=== PATIENT | female | born 1950 ===

== ENCOUNTER 2023-04-19 08:47 | Outpatient (REF) | payer MEDICARE, OTHER, SELFPAY | END 2023-04-19 08:48 | disposition home or self-care (01) | LOC: HO.HOSX 08:47 | PROVIDERS: Visit Provider Orthopaedic Surgery | DX: Z13.89 Encounter for screening for other disorder (principal) ==

== ENCOUNTER 2023-05-01 10:59 | Outpatient (REF) | payer MEDICARE, OTHER, SELFPAY | END 2023-05-01 11:00 | disposition home or self-care (01) | LOC: HO.HOSX 10:59 | PROVIDERS: Visit Provider Orthopaedic Surgery | DX: Z13.89 Encounter for screening for other disorder (principal) ==

== ENCOUNTER 2024-12-17 12:42 | Outpatient (REF) | payer MEDICARE, OTHER, SELFPAY ==
--- OUTSIDE RECORDS SUMMARY | 2024-12-18 13:45 | XMS_ITS ---
Author Name Katja, Clinic Address [address] [place] [id number] Phone [phone] Organization [facility] e, NA DOCUMENT DISCLAIMER Multiple document versions may exist, please be sure you review the latest version. The information in the [facility], [place] Continuity of Care Document represents a summary of certain health and medical information. It may not contain the complete medical history for the patient and should be independently verified. The represented time in the document is Eastern Time. 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 November 25, 2024 Anemia, unspecified D64.9 Active August Encounter for immunization Z23 Active J anuary 2024 Anemia in chronic kidney disease D63.1 Active July 25, 2024 Hyperkalemia E87.5 Active July 25 Other disorders of phosphorus metabolism E83.39 Active July 16, 2024 Other pruritus L29.89 Active June 10, 2024 Diarrhea, unspecified R19.7 Active Decemb er 2023 Pain, unspecified R52 Active June 012023 Fever, unspecified R50.9 Active June 10, 2024 Shortness of breath R06.02 Active June 10, 2024 Secondary hyperparathyroidism of renal origin N25.81 Active June 10, 2024 Anemia in chronic kidney disease D63.1 Active June 10, 2024 End stage renal disease N18.6 Active Dece mber 2023 Allergy, unspecified, sequela T78.40XS Active June 10, 2024 Hyperlipidemia, unspecified E78.5 Active June 10, 2024 Type 2 diabetes mellitus wit h diabetic chronic kidney disease E11.22 Active June 10, 2024 Unspecified atrial fibrillation I48.91 Active June 10, 2024 ALLERGIES AND ADVERSE REACTIONS Substance Reaction Severity Status LISINOPRIL Unknown Active Cardizem Unknown Active SOCIAL HISTORY Tobacco Use Status Tobacco Type Unknown if ever consumed tobacco - Caregiver Characteristics No Information Available Characteristics of Home environment No Information Available Gender and Sex Information Gender Identity Sexual Orientation Female Heterosexual MEDICATIONS Prescribed Medications for Dialysis Treatments Medication Instructions Dosage Route Start Date End Date Status Cinacalcet (Sensipar) 3X Week 30 mg Oral October 01, 2024 September 30, 2025 Active Mircera During Dialysis, Every 2 weeks 225 mcg Intravenous - push September 03, 2024 September 02, 2025 Active Vitamin D (Calcitriol) Oral During Dialysis, Every Treatment 1.0 mcg Oral November 28, 2024 November 27, 2025 Active Vitamin D (Calcitriol) Oral 3X Week 0.75 mcg Oral October 01, 2024 September 30, 2025 Discontinued Home Medications Medication Instructions Dosage Route Start Date End Date Status acetaminophen 325 mg Take by mouth four times a day 2 capsule ORAL October 25, 2022 Active amlodipine 10 mg Take by mouth once a day 1 tablet ORAL January 25, 2024 Active aspirin 81 mg Take by mouth once a day 1 capsule ORAL October 25, 2022 Active Basaglar KwikPen U-100 Insulin 100 unit/mL (3 mL) SUBCUTANEOUS October 04, 2022 Active carvedilol 3.125 mg Take by mouth twice a day 1 tablet ORAL October 04, 2022 Active Colace 100 mg Take by mouth twice a day as needed 1 capsule ORAL December 25, 2022 Active ergocalciferol (vitamin D2) 1,250 mcg (50,000 unit) Take by mouth once a week 1 capsule ORAL March 26, 2023 Active hydralazine 25 mg by mouth three times a day 1 tablet ORAL November 01, 2022 Active hyoscyamine sulfate 0.375 mg Take by mouth once a day 1 tablet ORAL February 23, 2023 Active insulin lispro 100 unit/mL SUBCUTANEOUS October 04, 2022 Active Norvasc 10 mg Take by mouth once a day 1 tablet ORAL October 03, 2022 Active Sevelamer Carbonate Tablet 800 mg Take By Mouth Three times a day With Meals 2 Tablet By Mouth November 29, 2024 November 28, 2025 Active torsemide 20 mg Take by mouth twice a day 2 tablet ORAL December 15, 2022 Active Renvela 800 mg Take by mouth three times a day 2 tablet ORAL November 29, 2024 Discontinued VITAL SIGNS Post-Treatment Vital Signs Vital Sign Value Date / Time Blood Pressure-sitting 117/72 mmHg November 28 08:54 AM Blood Pressure-standing 140/81 mmHg November 28, 2024 08:54 AM Heart Rate 81 beats per minute November 28, 2024 08:54 AM Respiratory Rate 16 breaths per minute November 28, 025 08:54 AM Temperature 96.0 deg. F November 28, 2024 08: 54 AM Weight Vital Sign Value Date / Time Estimated Dry Weight 68 kg November 10 11:59 PM Pre-Dialysis 70.90 kg November 28, 2024 08: 54 AM Post-Dialysis 68.10 kg November 28, 2024 08: 54 AM Other Other Value Date / Time Height 168 cm September 16, 2024 1 2:00 AM Body Mass Index 24.09 kg/m2 December 17, 2024 10 :17 AM HEALTH CONCERNS LAB RESULTS Hematology Result Type Result Value Relevant Referen ce Range Interpretation Date Transferrin Sat. (Calc) 64 % 20 - 55 % High July 04, 2024 Ferritin 1130 ng/mL 10 - 291 ng/mL High July UIBC/TIBC 99 mcg/dL 155 - 355 mcg/dL Low July 04, 2024 TIBC (Calc) 272 mcg/dL 185 - 515 mcg/dL - July 04, 2024 Ferritin 760 ng/mL 10 - 291 ng/mL High August 022024 UIBC/TIBC 198 mcg/dL 155 - 355 mcg/dL - August 20, 2024 TIBC (Calc) 279 mcg/dL 185 - 515 mcg/dL - 2024 Transferrin Sat. (Calc) 29 % 20 - 55 % - August 20 Ferritin 917 ng/mL 10 - 291 ng/mL High September 17, 2024 TIBC (Calc) 257 mcg/dL 185 - 515 mcg/dL - August 302024 UIBC/TIBC 140 mcg/dL 155 - 355 mcg/dL Low August Transferrin Sat. (Calc) 46 % 20 - 55 % - September 17, 2024 WBC (No Diff) 5.24 1000/mcL 4.80 - 10.80 1000/mcL - September 17, 2024 Hemoglobin x 3 23.1 % 36.0 - 48.0 % Low August 312024 Hemoglobin x 3 21.9 % 36.0 - 48.0 % Low September Hemoglobin x 3 20.1 % 36.0 - 48.0 % Low September 302024 Hemoglobin x 3 19.2 % 36.0 - 48.0 % Low September 302024 TIBC (Calc) 268 mcg/dL 185 - 515 mcg/dL - September 302024 Iron 137 mcg/dL 30 - 160 mcg/dL - October 15, 2024 UIBC/TIBC 131 mcg/dL 155 - 355 mcg/dL Low September Ferritin 1324 ng/mL 10 - 291 ng/mL High October 15, 2024 Transferrin Sat. (Calc) 51 % 20 - 55 % - October 15, 2024 Hemoglobin x 3 21.6 % 36.0 - 48.0 % Low October 012024 Hemoglobin x 3 21 % 36.0 - 48.0 % Low October 022024 Hemoglobin x 3 21.9 % 36.0 - 48.0 % Low November 05, 2024 Hemoglobin x 3 19.8 % 36.0 - 48.0 % Low November 12, 2024 Ferritin 1073 ng/mL 10 - 291 ng/mL High November 19 Transferrin Sat. (Calc) 37 % 20 - 55 % - November 19, 2024 TIBC (Calc) 234 mcg/dL 185 - 515 mcg/dL - November 19, 2024 Hemoglobin x 3 21.3 % 36.0 - 48.0 % Low November 19, 2024 HGB 7.1 g/dL 12.0 - 16.0 g/dL Low November 19, 2024 Iron 86 mcg/dL 30 - 160 mcg/dL - November 19 025 UIBC/TIBC 148 mcg/dL 155 - 355 mcg/dL Low November 19, 2024 Hemoglobin x 3 20.7 % 36.0 - 48.0 % Low November 28, 2024 HGB 6.9 g/dL 12.0 - 16.0 g/dL Critically low November 28, 2024 Metabolic/Renal Result Type Result Value Relevant Reference Range Interpre tation Date Hemoglobin A1c 8.0 % 4.8 - 5.9 % High September 17, 2024 Potassium 4.7 mEq/L 3.5 - 5.1 mEq/L - September 19, 2024 URR, Calc 69 % 65 - 80 % - October 15, 2024 BUN, Post 28 mg/dL 6 - 19 mg/dL High October 15 BUN 90 mg/dL 6 - 19 mg/dL High October 15 Creatinine, Serum 4.71 mg/dL 0.60 - 1.30 mg/dL High October 15, 2024 Bicarbonate 22 mEq/L 22 - 29 mEq/L - October 15, 2024 Potassium 5.6 mEq/L 3.5 - 5.1 mEq/L High October 15, 2024 Chloride 103 mEq/L 96 - 108 mEq/L - October 15, 2024 BUN/Creat Ratio 19.1 10.0 - 20.0 - September Sodium 136 mEq/L 136 - 145 mEq/L - October 15, 2024 URR, Calc 74 % 65 - 80 % - October 22, 2024 BUN, Post 16 mg/dL 6 - 19 mg/dL - October 22 25 BUN 61 mg/dL 6 - 19 mg/dL High October 22 25 BUN 48 mg/dL 6 - 19 mg/dL High November 19, 2024 URR, Calc 92 % 65 - 80 % High November 19, 2024 BUN, Post 4 mg/dL 6 - 19 mg/dL Low November 19, 2024 Potassium 4.9 mEq/L 3.5 - 5.1 mEq/L - November 19 025 Sodium 137 mEq/L 136 - 145 mEq/L - November 19 BUN/Creat Ratio 11.8 10.0 - 20.0 - November 19, 2024 Creatinine, Serum 4.08 mg/dL 0.60 - 1.30 mg/dL High November 19, 2024 Bicarbonate 25 mEq/L 22 - 29 mEq/L - November 19 25 Chloride 100 mEq/L 96 - 108 mEq/L - November 19 25 BUN, Post 18 mg/dL 6 - 19 mg/dL - November 24, 2024 URR, Calc 78 % 65 - 80 % - November 24, 2024 BUN 82 mg/dL 6 - 19 mg/dL High November 24, 2024 HD Adequacy Result Type Result Value Relevant Referen ce Range Interpretation Date Krt/V 0.00 No Reference Ran ge Provided - August 20, 2024 Krt/V 0.00 No Reference Ran ge Provided - September 17, 2024 wstdKt/V, residual 0.0 No Reference Range Provided - October 15, 2024 eKt/V ([place]) 1.07 No Reference Range Provided - October 15, 2024 wstdKt/V 1.5 No Reference Ran ge Provided - October 15, 2024 spKt/V Gotch 1.29 No Reference Ran ge Provided - October 15, 2024 Krt/V 0.00 No Reference Ran ge Provided - October 15, 2024 spKt/V ([place]ird[place] II) 1.29 No Reference Range Provided - October 15, 2024 wstdKt/V without residual 1.5 No Reference Range Provided - October 15, 2024 spKt/V ([place]irdas II) 1.55 No Reference Range Provided - October 22, 2024 spKt/V Got 1.55 No Reference Ran ge Provided - October 22, 2024 wstdKt/V 1.6 No Reference Ran ge Provided - October 22, 2024 wstdKt/V, residual 0.0 No Reference Range Provided - October 22, 2024 Krt/V 0.00 No Reference Ran ge Provided - October 22, 2024 eKt/V ([place]) 1.35 No Reference Range Provided - October 22, 2024 wstdKt/V without residual 1.6 No Reference Range Provided - October 22, 2024 wstdKt/V 2.0 No Reference Ran ge Provided - November 19, 2024 Krt/V 0.00 No Reference Ran ge Provided - November 19, 2024 spKt/V Got 3.11 No Reference Ran ge Provided - November 19, 2024 wstdKt/V without residual 2.0 No Reference Range Provided - November 19, 2024 wstdKt/V, residual 0.0 No Reference Range Provided - November 19, 2024 spKt/V (Daugirdas II) 3.02 No Reference Range Provided - November 19, 2024 eKt/V ([place]) 2.59 No Reference Range Provided - November 19, 2024 Krt/V 0.00 No Reference Ran ge Provided - November 24, 2024 spKt/V Got 1.83 No Reference Ran ge Provided - November 24, 2024 wstdKt/V 1.7 No Reference Ran ge Provided - November 24, 2024 wstdKt/V without residual 1.7 No Reference Range Provided - November 24, 2024 spKt/V (Daugirdas II) 1.85 No Reference Range Provided - November 24, 2024 wstdKt/V, residual 0.0 No Reference Range Provided - November 24, 2024 eKt/V ([place]) 1.61 No Reference Range Provided - November 24, 2024 Bone/Mineral Result Type Result Value Relevant Referen ce Range Interpretation Date Vitamin D 25 Hydroxy 14.1 ng/mL 30.0 - 100.0 ng/mL Low March 19, 2024 Vitamin D 25 Hydroxy 9.4 ng/mL 30.0 - 100.0 ng/mL Low June 18, 2024 Magnesium 2.1 mg/dL 1.6 - 2.6 mg/dL - June 18, 2024 PTH-Intact, Plasma 696 pg/mL 16 - 80 pg/mL High Jul Magnesium 2.0 mg/dL 1.6 - 2.6 mg/dL - July PTH-Intact, Plasma 690 pg/mL 16 - 80 pg/mL High Aug Magnesium 2.2 mg/dL 1.6 - 2.6 mg/dL - August 20, 2024 Vitamin D 25 Hydroxy 11.7 ng/mL 30.0 - 100.0 ng/mL Low September 17, 2024 PTH-Intact, Plasma 753 pg/mL 16 - 80 pg/mL High Aug Magnesium 2.1 mg/dL 1.6 - 2.6 mg/dL - September 17, 2024 Calcium, Total 9.1 mg/dL 8.4 - 10.2 mg/dL - 2024 Ca x P Product 43 0 - 54 - October 15, 2024 Phosphorus 4.7 mg/dL 2.6 - 4.5 mg/dL High October 15, 2024 Corrected Ca x P Product 42 0 - 54 - October 15, 2024 Magnesium 2.2 mg/dL 1.6 - 2.6 mg/dL - October 15, 2024 PTH-Intact, Plasma 644 pg/mL 16 - 80 pg/mL High Sep PTH-Intact, Plasma 698 pg/mL 16 - 80 pg/mL High November 19, 2024 Magnesium 1.9 mg/dL 1.6 - 2.6 mg/dL - November 19 025 Corrected Ca x P Product 39 0 - 54 - November 19, 2024 Calcium, Total 8.7 mg/dL 8.4 - 10.2 mg/dL - November 19, 2024 Ca x P Product 39 0 - 54 - November 19 25 Phosphorus 4.5 mg/dL 2.6 - 4.5 mg/dL - November 19 025 Liver/Nutrition Result Type Result Value Relevant Reference Range Interpre tation Date eNPCR 1.18 No Reference Range Provided - October 15, 2024 Albumin (BCG) 4.1 g/dL 3.5 - 5.2 g/dL - September 302024 SGPT (ALT) 17 U/L 7 - 52 U/L - October 15, 2024 eNPCR 0.98 No Reference Range Provided - October 22, 2024 eNPCR 1.09 No Reference Range Provided - November 19, 2024 Albumin (BCG) 4.0 g/dL 3.5 - 5.2 g/dL - November 19, 2024 SGPT (ALT) 11 U/L 7 - 52 U/L - November 19, 2024 eNPCR 1.12 No Reference Range Provided - November 24, 2024 Immunochemistry Result Type Result Value Relevant Referen ce Range Interpretation Date HCV s/co ratio 0.08 0.00 - 0.79 - March 19, 2024 HCV s/co ratio 0.09 0.00 - 0.79 - June 18, 2024 HCV s/co ratio 0.03 0.00 - 0.79 - September 17, 2024 Trace Elements Result Type Result Value Relevant Reference Range Interpre tation Date Aluminum < 5 mcg/L 0 - 10 mcg/L - June 18, 2024 Infectious Diseases Result Type Result Value Relevant Referen ce Range Interpretation Date Hep B core Ab Total (anti-HBc) Negative No Reference Range Provided - June 18, 2024 HCV Ab (anti-HCV) Nonreactive No Reference R noe Provided - September 17, 2024 Hep B Surface Ab (anti-HBs) < 10 mIU/mL No Reference Range Provided - September 17, 2024 Hep B Surface Ag (HBsAg) Negative No Reference Range Provided - November 19, 2024 DIALYSIS PRESCRIPTION Conventional Hemodialysis Data Element Value Order Date/Time November 10, 2024 Frequency 3X Week Treatment Days MonWedFri Dialyzer [id number] Optiflux Treatment Time (Total Minutes) 240 min Blood Flow Rate (mL/min) 450 mL/min Dialysate Flow Rate Manual 500 Estimated Dry Weight 68 kg Dialysate Concentrate 2.0 K, 2.50 Ca, 1. 0 Mg, 100 Dextrose ([id number]) Sodium (mEq/L) 138 mEq/L Bicarb Machine Setting (mEq/L) 35 mEq/L Dialysis Access Hemodialysis-AV Fist meng-Standard, Right Upper Arm, Brachial Artery to Basilic Vein Access Placed on April 05, 2022 Arterial Needle Size 15g1 Venous Needle Size 15g1 IMMUNIZATIONS Vaccine Date Dose Route Status HEPLISAV-B, Series 3 of 4 October 15, 2024 20.0 mcg Intram uscular Completed HEPLISAV-B, Series 2 of September 17, 2024 20.0 mcg Intram uscular Completed HEPLISAV-B, Series 1 of August 20, 2024 20.0 mcg Int ramuscular Completed Flu Vaccine - Flublok Quadrivalent April 16, 2023 0.5 mL Intramuscular Completed HEPLISAV-B, series 4 of March 21, 2023 20.0 mcg In tramuscular Completed PNEUMOVAX 23 February 14, 2023 0.5 mL Intramuscular Comp leted HEPLISAV-B, series 3 of January 17, 2023 20.0 mcg Intramu scular Completed HEPLISAV-B, series 2 of December 20, 2022 20.0 mcg Intramu scular Completed HEPLISAV-B, series 1 of November 15, 2022 20.0 mcg Intramus cular Completed TRANSPLANT WAITLIST STATUS No Information on Transplant Waitlist Status ADVANCE DIRECTIVES Directive Description Ordered By Effective Date Resuscitation status Full Code Jose Lebron 2023 DIALYSIS TREATMENTS Conventional Hemodialysis Date Pre-Treatment Vitals Post-Treatment Juliette ls Duration (hr) BFR (mL/min) Dialysate Dialyzer Dialysis Access Meds Admin November 19, 2024 Weight 68.40 kg Weight 66.60 kg 03:28:00 450 2.0 K, 2.50 Ca, 1.0 Mg, 100 Dextrose ([id number]) 160nre Optifl ux Blood Pressure-sitting 131/70 mmHg Blood Pressure-sit ting 147/63 mmHg Blood Pressure-standing 150/87 mmHg Blood Pressure-st anding 151/81 mmHg Heart Rate 95 beats per minute Heart Rate 84 beats per minute Respiratory Rate 18 breaths per minute Respiratory Rate 18 breaths per minute Temperature 97.2 deg. F Temperature 96.8 deg. F November 24, 2024 Weight 71.00 kg Weight 67.80 kg 03:56:00 450 2.0 K, 2.50 Ca, 1.0 Mg, 100 Dextrose ([id number]) 160nre Optiflux Hemodialysis-AV Fistula-Standard, Right Upper Arm, Brachial Artery to Basilic Vein Access Placed on April 05, 2022 Cinacalcet (Sensipar); 30mg,Oral Blood Pressure-sitting 143/77 mmHg Blood Pressure-sit ting 142/81 mmHg Blood Pressure-standing 142/93 mmHg Blood Pressure-st anding 153/74 mmHg Heart Rate 107 beats per minute Heart Rate 79 beats per minute Respiratory Rate 18 breaths per minute Respiratory Rate 18 breaths per minute Temperature 97.9 deg. F Temperature 96.8 deg. F November 28, 2024 Weight 70.90 kg Weight 68.10 kg 02:21:00 410 2.0 K, 2.50 Ca, 1.0 Mg, 100 Dextrose ([id number]) 160nre Optiflux Hemodialysis-AV Fistula-Standard, Right Upper Arm, Brachial Artery to Basilic Vein Access Placed on April 05, 2022 Cinacalcet (Sensipar); 30mg,Oral Vitamin D (Calcitriol) Oral; 1.0mcg,Oral Blood Pressure-sitting 134/84 mmHg Blood Pressure-sit ting 117/72 mmHg Heart Rate 90 beats per minute Blood Pressure-standi ng 140/81 mmHg Respiratory Rate 16 breaths per minute Heart Rate 81 beats per minute Temperature 96.0 deg. F Respiratory Rate 16 breaths per minute - - Temperature 96.0 deg. F
== END 2024-12-17 12:43 | disposition home or self-care (01) ==
LOC: HO.HOSX 12:42
PROVIDERS: Visit Provider Orthopaedic Surgery
DX: Z13.89 Encounter for screening for other disorder (principal)